=== PATIENT | female | born 1975 | race Caucasian/White ===

== ENCOUNTER 2016-07-28 23:22 | Emergency (ER) | payer OTHER ==
[~2016-07-28] VITALS: Ht 162.6 cm; Wt 136.5 kg
[2016-07-28 23:35] VITALS: Ht 162.6 cm; Wt 136.5 kg
[2016-07-29] MEDS ORDERED: ONDANSETRON 4 MG INJ IV STA (01:47)
[2016-07-29 02:24] LABS: ADD SCAN DIFF NO
[2016-07-29 02:25] LABS: BASOPHIL # 0.1 10^3/ul (0.0-0.1); BASOPHILS % 0.5 % (0.0-2.0); EOSINOPHILS # 0.2 10^3/ul (0.0-0.5); EOSINOPHILS % 1.9 % (0.0-7.0); HEMATOCRIT 42.6 % (37.0-47.0); HEMOGLOBIN 14.5 g/dl (12.0-16.0); LYMPHOCYTES # 3.4 10^3/ul (0.8-2.9); LYMPHOCYTES % 35.3 % (15.0-51.0); MEAN CORPUSCULAR HEMOGLOBIN 30.5 pg (29.0-33.0); MEAN CORPUSCULAR VOLUME 89.5 fl (82.0-101.0); MEAN PLATELET VOLUME 9.4 fl (7.4-10.4); MONOCYTE # 0.8 10^3/ul (0.3-0.9); MONOCYTES % 8.7 % (0.0-11.0); NEUTROPHIL # 5.1 10^3/ul (1.6-7.5); NEUTROPHILS % 53.2 % (39.0-77.0); PLATELET COUNT 288 10^3/UL (140-415); RED BLOOD COUNT 4.76 10^6/ul (4.20-5.40); RED CELL DISTRIBUTION WIDTH 12.3 % (11.5-14.5); WHITE BLOOD COUNT 9.6 10^3/ul (4.8-10.8)
[2016-07-29 02:28] LABS: ADD UMIC YES; URINE BILIRUBIN (Dip) NEGATIVE (NEGATIVE); URINE BLOOD (Dip) TRACE (NEGATIVE); URINE COLOR LT. YELLOW (YELLOW); URINE GLUCOSE (Dip) NEGATIVE (NEGATIVE); URINE KETONES (Dip) NEGATIVE (NEGATIVE); URINE LEUKOCYTE ESTERASE (Dip) 1+ (NEGATIVE); URINE NITRITE (Dip) NEGATIVE (NEGATIVE); URINE TOTAL PROTEIN (Dip) NEGATIVE (NEGATIVE); URINE UROBILINOGEN (Dip) 0.2 E.U./dL (0.1-1.0)
[2016-07-29 02:36] LABS: BACTERIA,URINE MANY; SQUAMOUS EPITHELIAL CELL,UR MODERATE
[2016-07-29] MEDS ORDERED: PRED50TA PO (02:45)
[2016-07-29] MEDS ORDERED: CYCL-319 PO (02:45)
[2016-07-29] MEDS ORDERED: NAPR-260 PO (02:45)
--- NOTE | 2016-07-29 02:47 | ERD ---
ER Documentation Chief Complaint Date/Time DATE: 07/29/16 TIME: 02:44 Chief Complaint PELVICE PAIN +N/V/D X1 WEEK. HPI 41-year-old female presents to emergency department for complaints of lower abdominal pain nausea and diarrhea that started one week ago. Patient denies any fever or chills. Patient afebrile vomiting. Patient denies any blood in the stool or black stool. Patient denies any hematuria or dysuria. ROS All systems reviewed and are negative except as per history of present illness. Medications Home Meds Active Scripts Tramadol HCl (Tramadol HCl) 50 Mg Tablet, 50 MG PO Q6 for SEVERE PAIN LEVEL 7-10 , #20 TAB Prov:VIMAL CAO PRENATAL NURSE 07/29/16 Ondansetron (Ondansetron Odt) 4 Mg Tab.rapdis, 4 MG PO Q8 Y for NAUSEA AND/OR VOMITING, #30 TAB Prov:VIMAL CAO PRENATAL NURSE 07/29/16 Ibuprofen* (Motrin*) 600 Mg Tab, 600 MG PO Q6H Y for PAIN AND OR ELEVATED TEMP, #30 TAB Prov:VIMAL CAO PRENATAL NURSE 07/29/16 Dicyclomine Hcl* (Bentyl*) 10 Mg Capsule, 20 MG PO QID, #20 CAP Prov:VIMAL CAO PRENATAL NURSE 07/29/16 Reported Medications Prednisone* (Prednisone*) Unknown Strength Tablet, PO, TAB 07/29/16 Cyclobenzaprine Hcl* (Cyclobenzaprine Hcl*) Unknown Strength Tablet, PO TID, # 15 TAB 07/29/16 Naproxen* (Naprosyn*) Unknown Strength Tablet, PO BID Y for PAIN AND/OR INFLAMMATION, #30 TAB 07/29/16 Allergies Allergies: Coded Allergies: No Known Allergy (Unverified , 07/28/16) PMhx/Soc History of Surgery: Yes (cholecystectomy) Anesthesia Reaction: No Hx Neurological Disorder: No Hx Respiratory Disorders: No Hx Cardiac Disorders: No Hx Psychiatric Problems: No Hx Miscellaneous Medical Probl: No Hx Alcohol Use: No Hx Substance Use: No Hx Tobacco Use: No Smoking Status: Never smoker FmHx Family History: No coronary disease, No diabetes, No other Physical Exam Vitals Vital Signs Date Time Temp Pulse Resp B/P Pulse Ox O2 Delivery O2 Flow Rate FiO2 07/29/16 04:45 90 20 109/57 100 07/28/16 23:35 99.0 105 20 121/75 99 Physical Exam GENERAL: The patient is well developed and appropriate for usual state of health, in no apparent distress. CHEST: Clear to auscultation bilaterally. There are no rales, wheezes or rhonchi. HEART: Regular rate and rhythm. No murmurs, clicks, rubs or gallops. No S3 or S4. ABDOMEN: Soft, nontender and nondistended. Hyperactive bowel sounds. No rebound or guarding. No gross peritonitis. No gross organomegaly or masses. No Fong sign or McBurney point tenderness. BACK: No midline or flank tenderness. EXTREMITIES: Equal pulses bilaterally. There is no peripheral clubbing, cyanosis or edema. No focal swelling or erythema. Full range of motion. Grossly neurovascularly intact. NEURO: Alert and oriented. Cranial nerves 2-12 intact. Motor strength in all 4 extremities with 5/5 strength. Sensation grossly intact. Normal speech and gait. SKIN: There is no apparent rash or petechia. The skin is warm and dry. HEMATOLOGIC AND LYMPHATIC: There is no evidence of excessive bruising or lymphedema. No gross cervical, axillary, or inguinal lymphadenopathy. Result Diagram: 07/29/16 0206 07/29/16 0206 Results 24 hrs Laboratory Tests Test 07/29/16 02:06 White Blood Count 9.610^3/ul Red Blood Count 4.7610^6/ul Hemoglobin 14.5g/dl Hematocrit 42.6% Mean Corpuscular Volume 89.5fl Mean Corpuscular Hemoglobin 30.5pg Mean Corpuscular Hemoglobin Concent 34.0g/dl Red Cell Distribution Width 12.3% Platelet Count 84876^3/UL Mean Platelet Volume 9.4fl Neutrophils % 53.2% Lymphocytes % 35.3% Monocytes % 8.7% Eosinophils % 1.9% Basophils % 0.5% Nucleated Red Blood Cells % 0.0/100WBC Neutrophils # 5.110^3/ul Lymphocytes # 3.410^3/ul Monocytes # 0.810^3/ul Eosinophils # 0.210^3/ul Basophils # 0.110^3/ul Nucleated Red Blood Cells # 0.010^3/ul Urine Color LT. YELLOW Urine Clarity HAZY Urine pH 5.5 Urine Specific [place] >=1.030 Urine Ketones NEGATIVE Urine Nitrite NEGATIVE Urine Bilirubin NEGATIVE Urine Urobilinogen 0.2 E.U./dL Urine Leukocyte Esterase 1+ Urine Microscopic RBC 2-5/HPF Urine Microscopic WBC 10-25/HPF Urine Squamous Epithelial Cells MODERATE Urine Bacteria MANY Urine Hemoglobin TRACE Urine Glucose NEGATIVE% Urine Total Protein NEGATIVE Urine Test NEGATIVE Sodium Level 143mmol/L Potassium Level 4.0mmol/L Chloride Level 110mmol/L Carbon Dioxide Level 27mmol/L Anion Gap 10 Blood Urea Nitrogen 15mg/dl Creatinine 0.65mg/dl Glucose Level 119mg/dl Calcium Level 9.2mg/dl Total Bilirubin 0.1mg/dl Direct Bilirubin 0.00mg/dl Indirect Bilirubin 0.1mg/dl Aspartate Amino Transf (AST/SGOT) 41IU/L Alanine Aminotransferase (ALT/SGPT) 64IU/L Alkaline Phosphatase 148IU/L Total Protein 7.7g/dl Albumin 4.7g/dl Globulin 3.00g/dl Albumin/Globulin Ratio 1.56 Lipase 71U/L Current Medications Medications (Trade) Dose Ordered Sig/Irina Route PRN Reason Start Time Stop Time Status Last Admin Dose Admin Ondansetron HCl (Zofran Inj) 4 mg ONCE STAT IV 07/29/16 01:47 07/29/16 01:48 DC 07/29/16 02:18 Morphine Sulfate 4 mg 4 mg ONCE STAT IV 07/29/16 03:14 07/29/16 03:16 DC Sodium Chloride 1,000 ml @ 1,000 mls/hr Q1H ONCE IV 07/29/16 03:30 07/29/16 04:29 DC 07/29/16 03:53 Sodium Chloride (NS) 100 ml @ ud STK-MED ONCE .ROUTE 07/29/16 03:45 07/29/16 03:46 DC 07/29/16 03:46 Iohexol (Omnipaque 300mg/ ml) 150 ml STK-MED ONCE .ROUTE 07/29/16 03:45 07/29/16 03:46 DC 07/29/16 03:46 Patient was given Zofran here in the emergency department. After treatment, patient was able to tolerate po fluids here in the emergency department without any vomiting. There is no signs and symptoms of dehydration. PROCEDURE: CT ABDOMEN/PELVIS WITH CONTRAST CLINICAL INDICATION: 41-year-old female with abdominal pain. TECHNIQUE: The study was performed utilizing a [employer] VCT 64-slice CT scanner. Direct axial sections were obtained through the abdomen and pelvis with the use of 100 cc of Omnipaque-300 nonionic intravenous contrast material. Sagittal and coronal reformations were obtained. One or more of the following dose reduction techniques were utilized: automated exposure control, adjustment of the mA and/or kV according to patient's size or use of iterative reconstruction technique. The images were reviewed on a PACS workstation. CTD/ vol = 23.8 mGy; Total Exam DLP = 1458.9 mGy-cm. COMPARISON: None. FINDINGS: The lung bases are unremarkable. There is no evidence for significant pleural effusion. The liver has a normal size and contour. There is diffuse decreased density throughout the liver consistent with fatty infiltration but without focal areas of abnormal density or contrast enhancement. No intrahepatic nor extrahepatic biliary ductal dilatation is seen. Surgical clips are present within the gallbladder fossa from prior cholecystectomy. The pancreas is without areas of abnormal attenuation or contrast enhancement. This spleen is identified and has a normal size without abnormal density or contrast enhancement. The adrenal glands are unremarkable. The kidneys are functional bilaterally without abnormal density. No hydroureteronephrosis nor nephroureterolithiasis is evident. The urinary bladder contains a small volume of urine. There is a right upper abdominal ventral incisional hernia with an opening of 20 x 22 mm containing fat. There are mildly dilated fluid-filled loops of small bowel without evidence for obstruction. There is fecalization of the distal small bowel as well as mild retained stool within the colon. Multiple small diverticula seen within the sigmoid colon region. Surgical clips are seen within the cecal and right lower quadrant region presumably from prior appendectomy. There is no evidence for periappendiceal inflammatory changes. The uterus is unremarkable. There is no significant free fluid. The aortoiliac vessels are without aneurysmal dilatation. The osseous structures are intact. IMPRESSION: 1. Diffuse fatty infiltration of the liver. 2. Status post cholecystectomy. 3. Mild fluid within the small bowel without obstruction suggestive of an enteritis. 4. Right upper abdominal ventral incisional hernia containing fat. 5. Fecalization distal small bowel as well as mild retained colonic stool without obstruction. 6. Status post appendectomy. 7. Minimal sigmoid diverticulosis. .Rolando Bustillo MD, MD Date Time Electronically viewed and signed by .Rolando Bustillo MD, MD on 07/29/2016 03:53 .M/ CC: VIMAL CAO NP Procedures/MDM Medical Decision Making: Patient's symptoms most likely consistent with enteritis is seen in the abdominal CT. Possibly viral gastroenteritis. There is low suspicion for abdominal emergencies at this time. Patients abdominal exam is normal at this time. Patients radiology exam does not show any abdominal emergencies at this time. There is low suspicion for appendicitis, cholecystitis, abdominal aortic aneurysms or peritonitis at this time. There is low suspicion for sepsis. Patient appears well and is hemodynamically stable. Disposition: Home. Condition: Stable Prescription Bentyl, Zofran, tramadol Instructions: Patient is advised to take medications as prescribed. Patient is advised to rest, increase fluid intake and do brat diet for next 1-2 days and progress as tolerated. Patient is advised that if symptoms are worse, severe abdominal pain, uncontrolled vomiting, high fever, severe flank pain, worst signs and symptoms, to return to the emergency department immediately. Otherwise, patient can follow up with primary care doctor in 5-7 days. Departure Diagnosis: Primary Impression: Viral gastroenteritis Condition: Stable Additional Instructions: Patient is advised to take medications as prescribed. Patient is advised to rest, increase fluid intake and do brat diet for next 1-2 days and progress as tolerated. Patient is advised that if symptoms are worse, severe abdominal pain , uncontrolled vomiting, high fever, severe flank pain, worst signs and symptoms , to return to the emergency department immediately. Otherwise, patient can follow up with primary care doctor in 5-7 days. VIMAL CAO NP July 29, 2016 02:47
[2016-07-29 02:55] LABS: ALBUMIN 4.7 g/dl (3.3-4.9)
[2016-07-29 02:57] LABS: BILIRUBIN,INDIRECT 0.1 mg/dl (0-1.1); BILIRUBIN,TOTAL 0.1 mg/dl (0.2-1.3); CREATININE 0.65 mg/dl (0.44-1.00)
[2016-07-29 02:58] LABS: ALBUMIN/GLOBULIN RATIO 1.56; CALCIUM 9.2 mg/dl (8.4-10.2); TOTAL PROTEIN 7.7 g/dl (6.1-8.1)
[2016-07-29] MEDS ORDERED: morphine 4 MG/ML VIAL IV STA (03:14)
[2016-07-29] MEDS ORDERED: SOD CHLORIDE 0.9% 1,000 ML IV ONE (03:30)
[2016-07-29] MEDS ORDERED: SOD CHLORIDE 0.9% 100 ML ONE (03:45)
[2016-07-29] MEDS ORDERED: IOHEXOL 300MG/ML 150 ML BTL ONE (03:45)
--- NOTE | 2016-07-29 03:53 | RADRPT ---
PROCEDURE: CT ABDOMEN/PELVIS WITH CONTRAST CLINICAL INDICATION: 41-year-old female with abdominal pain. TECHNIQUE: The study was performed utilizing a GE [employer] VCT 64-slice CT scanner. Direct axia l sections were obtained through the abdomen and pelvis with the use of 100 cc of Omnipaque-300 patrick onic intravenous contrast material. Sagittal and coronal reformations were obtained. One or more of the following dose reduction techniques were utilized: automated exposure control, adjustment of the mA and/or kV according to patient's size or use of iterative reconstruction technique. The images were reviewed on a PACS workstation. CTD/vol = 23.8 mGy; Total Exam DLP = 1458.9 mGy-cm. COMPARISON: None. FINDINGS: The lung bases are unremarkable. There is no evidence for significant pleural effusion. The liver has a normal size and contour. There is diffuse decreased density throughout the liver consistent w ith fatty infiltration but without focal areas of abnormal density or contrast enhancement. No intra hepatic nor extrahepatic biliary ductal dilatation is seen. Surgical clips are present within the ga llbladder fossa from prior cholecystectomy. The pancreas is without areas of abnormal attenuation o r contrast enhancement. This spleen is identified and has a normal size without abnormal density or contrast enhancement. The adrenal glands are unremarkable. The kidneys are functional bilaterally w ithout abnormal density. No hydroureteronephrosis nor nephroureterolithiasis is evident. The urinary bladder contains a small volume of urine. There is a right upper abdominal ventral incisional herni a with an opening of 20 x 22 mm containing fat. There are mildly dilated fluid-filled loops of small bowel without evidence for obstruction. There is fecalization of the distal small bowel as we ll as mild retained stool within the colon. Multiple small diverticula seen within the sigmoid colo n region. Surgical clips are seen within the cecal and right lower quadrant region presumably from prior appendectomy. There is no evidence for periappendiceal inflammatory changes. The uterus is un remarkable. There is no significant free fluid. The aortoiliac vessels are without aneurysmal dilat ation. The osseous structures are intact. IMPRESSION: 1. Diffuse fatty infiltration of the liver. 2. Status post cholecystectomy. 3. Mild fluid within the small bowel without obstruction suggestive of an enteritis. 4. Right upper abdominal ventral incisional hernia containing fat. 5. Fecalization distal small bowel as well as mild retained colonic stool without obstruction. 6. Status post appendectomy. 7. Minimal sigmoid diverticulosis. .Rolando Bustillo MD, Date Time Electronically viewed and signed by .Rolando Bustillo MD, on 07/29/2016 03:53 .Yoseph/
[2016-07-29] MEDS ORDERED: ONDA4TAB14 PO (04:10)
[2016-07-29] MEDS ORDERED: TRAM50TA2 PO (04:10)
[2016-07-29] MEDS ORDERED: DICY10CA60 PO (04:10)
[2016-07-29] MEDS ORDERED: IBUP-1542 PO (04:10)
[2016-07-29 04:45] VITALS: BP 109/57; PULSE 90; RESP 20
== END 2016-07-29 04:48 | disposition home or self-care (01) ==
LOC: FTE 23:22
DX: A08.4 Viral intestinal infection, unspecified (principal); R11.2 Nausea with vomiting, unspecified
CPT/HCPCS: 36415; 74177; 80053; 81001; 83690; 84703; 85025; 96374; J2405; J7030; Q9967; Z7502; Z7610